=== PATIENT | male | born 1970 | race Caucasian/White ===

== ENCOUNTER 2016-06-04 07:00 | Outpatient (RCR) | payer OTHER | END 2016-07-24 | disposition home or self-care (01) | LOC: WSPT | DX: M75.81 Other shoulder lesions, right shoulder (principal); M77.11 Lateral epicondylitis, right elbow ==

== ENCOUNTER 2016-12-10 09:48 | Outpatient (RCR) | payer OTHER | END 2016-12-12 13:21 | LOC: WSOH 09:48 | DX: M77.11 Lateral epicondylitis, right elbow (principal) ==

== ENCOUNTER 2017-01-15 08:19 | Outpatient (RCR) | payer OTHER | END 2017-01-16 15:16 | disposition still patient (30) | LOC: WSOH 08:19 | DX: M77.11 Lateral epicondylitis, right elbow (principal) | CPT/HCPCS: J1030 ==

== ENCOUNTER 2018-06-14 08:51 | Outpatient (RCR) | payer OTHER | END 2018-09-22 10:50 | disposition home or self-care (01) | LOC: WSOH 08:51 | DX: S76.811A Strain of other specified muscles, fascia and tendons at thigh level, right thigh, initial encounter (principal); S76.011A Strain of muscle, fascia and tendon of right hip, initial encounter; W01.0XXA Fall on same level from slipping, tripping and stumbling without subsequent striking against object, initial encounter; Y92.838 Other recreation area as the place of occurrence of the external cause; Y93.01 Activity, walking, marching and hiking; Y99.0 Civilian activity done for income or pay ==

== ENCOUNTER → 2018-10-12 | Outpatient (CLI) | payer OTHER | LOC: COL.RAD 10-05 07:30 | DX: M25.471 Effusion, right ankle (principal) ==

== ENCOUNTER 2018-10-20 13:16 | Outpatient (RCR) | payer OTHER | END 2018-10-29 13:45 | disposition home or self-care (01) | LOC: WSOH 13:16 | DX: M25.571 Pain in right ankle and joints of right foot (principal); S76.011D Strain of muscle, fascia and tendon of right hip, subsequent encounter ==